=== PATIENT | female | born 1980 | race Hispanic/Latino ===

== ENCOUNTER 2021-11-24 17:00 | Emergency (ER) | payer SELFPAY, OTHER ==
[2021-11-24] MEDS ORDERED: Acetaminophen 500 MG TAB ONE (17:51)
[2021-11-24 18:40] LABS: ALT (SGPT) 9 U/L (8-55); AST (SGOT) 15 U/L (5-34); Albumin 3.8 g/dL (3.5-5.0); Alkaline Phosphatase 48 U/L (40-110); Anion Gap 13 mmol/L (10-20); BUN (Urea Nitrogen) 8 mg/dL (7.0-18.7); Bilirubin, Total 0.3 mg/dL (0.2-1.2); Calc. Creatinine Clearance 0 mL/min (70-130); Calcium 9.1 mg/dL (7.8-10.44); Carbon Dioxide 20 mmol/L (22-29); Chloride 106 mmol/L (98-107); Globulin 3.2 g/dL (2.4-3.5); Glucose 83 mg/dL (70-105); Potassium 3.6 mmol/L (3.5-5.1); Sodium 135 mmol/L (136-145)
[2021-11-24 18:43] LABS: #Eosinphils 0.1 10x3/uL (0.0-0.5); #Monocytes 0.5 10x3/uL (0.0-1.1); #Neutrophils 5.5 10x3/uL (1.5-8.4); %Basophils 0.1 % (0.0-2.0); %Eosinophils 0.9 % (0.0-6.0); %Lymphocytes 19.4 % (18.0-47.0); %Neutrophils 72.1 % (40.0-75.0); Hemoglobin 10.8 g/dL (12.0-15.5); Mean Corpuscular HGB CONC 32.8 g/dL (32.0-36.0); Mean Corpuscular Hemoglobin 27.6 pg (27.0-33.0); Mean Corpuscular Volume 84.1 fl (81.6-98.3); Mean Platelet Volume 11.2 fl (7.4-10.4); Platelet Count 263 10x3/uL (150-450); RBC Distribution Width 14.9 % (11.5-14.5); Red Blood Cell (RBC) Count 3.91 10x6/uL (3.90-5.03); White Blood Cell (WBC) Count 7.6 10x3/uL (3.5-10.5)
== END 2021-11-24 20:04 | disposition home or self-care (01) ==
LOC: CSHERS 17:38
DX: O99.891 Other specified diseases and conditions complicating pregnancy (principal); R10.9 Unspecified abdominal pain; Z3A.15 15 weeks gestation of pregnancy
CPT/HCPCS: 76815; 80053; 85025

== ENCOUNTER 2022-05-05 11:13 | Inpatient (IN) | payer OTHER, SELFPAY ==
[2022-05-05] MEDS ORDERED: Promethazine HCl 25 MG/ML VIAL IM PRN (11:52)
[2022-05-05] MEDS ORDERED: hydrALAZINE 20 MG/ML VIAL SLOW IVP PRN ×2 (11:52→18:40)
[2022-05-05] MEDS ORDERED: Ondansetron PF 4 MG/2 ML Vial IVP PRN ×2 (11:52→18:40)
[2022-05-05] MEDS ORDERED: Lidocaine 1% (PF) 30 ML VIAL SC PRN (11:52)
[2022-05-05] MEDS ORDERED: Misoprostol 200 MCG TAB PR PRN (11:53)
[2022-05-05] MEDS ORDERED: Carboprost 250 MCG/ML AMP IM PRN (11:53)
[2022-05-05] MEDS ORDERED: Acetaminophen 500 MG TAB PO PRN (11:53)
[2022-05-05] MEDS ORDERED: Ibuprofen 800 MG TAB PO PRN (11:53)
[2022-05-05] MEDS ORDERED: Methylergonovine 0.2 MG/ML VIAL IM PRN ×2 (11:53→18:40)
[2022-05-05] MEDS ORDERED: Lactated Ringer's 1,000 ML IV SCH (12:00)
[2022-05-05] MEDS ORDERED: NS w/ Oxytocin 30 units 500 ML IV SCH ×3 (12:00→18:40)
[2022-05-05 12:18] VITALS: BMI 35.0
[2022-05-05 12:18] LABS: Hemoglobin 11.4 g/dL (12.0-15.5); Mean Corpuscular HGB CONC 33.7 g/dL (32.0-36.0); Mean Corpuscular Hemoglobin 28.9 pg (27.0-33.0); Mean Corpuscular Volume 85.6 fl (81.6-98.3); Mean Platelet Volume 11.8 fl (7.4-10.4); Platelet Count 224 10x3/uL (150-450); Red Blood Cell (RBC) Count 3.95 10x6/uL (3.90-5.03); White Blood Cell (WBC) Count 12.4 10x3/uL (3.5-10.5)
[2022-05-05] MEDS ORDERED: Fentanyl 2 mcg/Bup 0.1% Cadd 100 ML ONE (12:28)
[2022-05-05 12:53] LABS: SARS-CoV-2 NAA Rapid Test Not Detected (NotDetected)
[2022-05-05 12:54] LABS: Syphilis Antibody Nonreactive (Nonreactive); Syphilis Antibody Index 0.13 S/CO (<1.00 Non-Reactive)
[2022-05-05 12:55] LABS: HBSAg Index 0.18 S/CO (0-0.99); Hep B Surf Ag Non-Reactive S/CO (NonReactive)
[2022-05-05] MEDS ORDERED: Bupivacaine 0.25% HCL 30 ML VIAL ONE (16:39)
[2022-05-05] MEDS ORDERED: Bisacodyl 10 MG SUPP PR PRN (18:40)
[2022-05-05] MEDS ORDERED: Milk Of Magnesia 30 ML UDCUP PO PRN (18:40)
[2022-05-05] MEDS ORDERED: Boostrix 0.5 ML (Tdap) VIAL (>/=7 yrs of age) IM ONE (18:40)
[2022-05-05] MEDS ORDERED: Benzocaine-Menthol 82.5 ML CAN TOP PRN (18:40)
[2022-05-05] MEDS ORDERED: Misoprostol 200 MCG TAB VAG PRN (18:40)
[2022-05-05] MEDS ORDERED: Ferrous Sulfate 325 MG TAB PO SCH (19:00)
[2022-05-05] MEDS: Ibuprofen 800 MG TAB PO SCH (21:34)
[2022-05-05] MEDS: Acetaminophen 325 MG TAB PO SCH (21:35)
[2022-05-05] MEDS: Docusate 100 MG CAP PO SCH (21:36)
[2022-05-06] MEDS: Ibuprofen 800 MG TAB PO SCH ×3 (05:10→21:59)
[2022-05-06] MEDS: Acetaminophen 325 MG TAB PO SCH ×4 (05:45→22:26)
[2022-05-06] MEDS: Prenatal Vitamin 1 TAB PO SCH (09:00)
[2022-05-06] MEDS: Docusate 100 MG CAP PO SCH ×2 (09:00→21:59)
[2022-05-06] MEDS: Ferrous Sulfate 325 MG TAB PO SCH ×2 (09:07→15:45)
[2022-05-07] MEDS: Ibuprofen 800 MG TAB PO SCH ×2 (05:05→13:25)
[2022-05-07] MEDS: Acetaminophen 325 MG TAB PO SCH ×3 (09:02→13:27)
[2022-05-07] MEDS: Ferrous Sulfate 325 MG TAB PO SCH ×2 (09:03→16:08)
[2022-05-07 09:04] VITALS: BP 104/59; TEMP 97.9
[2022-05-07] MEDS: Docusate 100 MG CAP PO SCH (09:04)
[2022-05-07] MEDS: Prenatal Vitamin 1 TAB PO SCH (09:04)
== END 2022-05-07 16:20 | disposition home or self-care (01) | DRG 807 ==
LOC: CSHLD/OP 11:13 → CSHLD 13:11 → CSHPP 20:05
PROVIDERS: ADMIT Obstetrics & Gynecology; ATTEND Obstetrics & Gynecology
PROC: 10E0XZZ Delivery of Products of Conception, External Approach (ICD-10-PCS; principal; 2022-05-05)
DX: O24.425 Gestational diabetes mellitus in childbirth, controlled by oral hypoglycemic drugs (principal); Z37.0 Single live birth; Z3A.38 38 weeks gestation of pregnancy; Z20.822 Contact with and (suspected) exposure to COVID-19; Z79.84 Long term (current) use of oral hypoglycemic drugs; Z79.82 Long term (current) use of aspirin; Z90.49 Acquired absence of other specified parts of digestive tract; O71.82 Other specified trauma to perineum and vulva; O69.81X0 Labor and delivery complicated by cord around neck, without compression, not applicable or unspecified
CPT/HCPCS: 36415; 36416; 51702; 85027; 86780; 86850; 86900; 86901; 87340; 99285; S0020; U0002